=== PATIENT | female | born 1985 | race Caucasian/White ===

== ENCOUNTER 2019-01-25 20:19 | Emergency (ER) | payer MEDICAID ==
[~2019-01-25] VITALS: Ht 167.6 cm; Wt 49.0 kg
[2019-01-25 20:51] VITALS: BP 121/78
== END 2019-01-25 20:58 | disposition left against medical advice (07) ==
LOC: ER 20:19
DX: E86.0 Dehydration (principal); R21 Rash and other nonspecific skin eruption; Z53.21 Procedure and treatment not carried out due to patient leaving prior to being seen by health care provider

== ENCOUNTER 2019-02-22 15:05 | Emergency (ER) | payer MEDICAID ==
[~2019-02-22] VITALS: Ht 170.2 cm; Wt 52.3 kg
[2019-02-22] MEDS ORDERED: normal saline 1000ML IV soln IVB ONE ×2 (16:50→18:45)
[2019-02-22 17:25] LABS: BASOPHILS % (AUTO) 0.4 % (0-1); EOSINOPHILS % (AUTO) 0.1 % (0-6); HEMATOCRIT 42.9 % (35.0-45.0); HEMOGLOBIN 14.4 g/dl (12.0-16.0); LYMPHOCYTES # (AUTO) 1.7 X10'3 (1.1-4.8); MEAN CORPUSCULAR HGB CONC 33.6 g/dL (33.0-36.5); MEAN CORPUSCULAR VOLUME 86.4 FL (78-98); MEAN PLATELET VOLUME 8.5 FL (7.4-10.4); MONOCYTES # (AUTO) 0.8 X10'3 (0-0.9); MONOCYTES % (AUTO) 7.2 % (2-12); NEUTROPHILS # (AUTO) 8.5 X10'3 (1.8-7.7); NEUTROPHILS % (AUTO) 77.3 % (42-75); PLATELET COUNT 252 X10'3 (140-440); RED BLOOD COUNT 4.96 X10'6 (4.20-5.60); RED CELL DISTRIBUTION WIDTH 15.5 % (11.5-14.5); WHITE BLOOD COUNT 11.1 X10'3 (4.5-11.0)
[2019-02-22 17:29] LABS: URINE HCG NEGATIVE (NEG)
[2019-02-22 17:30] LABS: CLARITY,URINE SLIGHTLY CLOUDY (Clear); COLOR,URINE YELLOW (Yellow); GLUCOSE, URINE NEGATIVE (Neg); KETONES,URINE NEGATIVE (Neg); LEUKOCYTE ESTERASE ,URINE SMALL (Neg); NITRITES, URINE NEGATIVE (Neg); OCCULT BLOOD,URINE NEGATIVE (Neg); PH,URINE 5.5 (4.8-8.0); PROTEIN,URINE 100 mg/dl (Neg); UROBILINOGEN,URINE 0.2 E.U/dL (0.2-1.0)
[2019-02-22 17:37] LABS: ALANINE AMINOTRANSFERASE 27 U/L (12-78); ALBUMIN 4.8 G/DL (3.4-5.0); ALBUMIN/GLOBULIN RATIO 1.6 (1.1-1.5); ALKALINE PHOSPHATASE 33 IU/L (46-116); ANION GAP 13 (8-16); ASPARTATE AMINO TRANSFERASE 16 U/L (10-37); BILIRUBIN,TOTAL 1.3 MG/DL (0.1-1.0); BLOOD UREA NITROGEN 61 MG/DL (7-18); BUN/CREATININE RATIO 37.9 (6.6-38.0); CALCIUM 10.7 MG/DL (8.5-10.1); CHLORIDE 105 MMOL/L (99-107); CREATININE 1.61 MG/DL (0.40-0.90); GLUCOSE 119 MG/DL (70-104); SODIUM 145 MMOL/L (135-145); TOTAL PROTEIN 7.8 G/DL (6.4-8.2); eGFR 37 ML/MIN
[2019-02-22 17:47] LABS: UA COLLECTION TYPE CLN CATCH MIDSTREAM
[2019-02-22] MEDS ORDERED: potassium Cl 20 mEq SR tablet PO STA (17:49)
[2019-02-22 17:51] LABS: HYALINE CASTS >30 /LPF (NEGATIVE); MUCUS STRANDS MANY /LPF (Neg)
[2019-02-22 17:52] LABS: BACTERIA,URINE 2+ /HPF (Neg); SQUAMOUS EPITHELIAL CELL,UR MODERATE /LPF (FEW)
[2019-02-22 17:53] LABS: RBC,URINE NONE SEEN /HPF (0-2)
[2019-02-22 19:42] VITALS: BP 112/78
== END 2019-02-22 19:43 | disposition home or self-care (01) ==
LOC: ER 15:05
DX: E86.0 Dehydration (principal); Z59.0 Homelessness
CPT/HCPCS: 36415; 80053; 81001; 81025; 85025; 87077; 87088; 87186; 93005; 96360; 96361; 99284; J7030

== ENCOUNTER 2019-03-09 03:12 | Emergency (ER) | payer MEDICAID ==
[~2019-03-09] VITALS: Ht 165.1 cm; Wt 42.8 kg
[2019-03-09 03:24] VITALS: BP 99/72
== END 2019-03-09 05:12 | disposition home or self-care (01) ==
LOC: ER 03:13
DX: E86.0 Dehydration (principal); Z59.0 Homelessness
CPT/HCPCS: 99281

== ENCOUNTER 2019-08-22 22:29 | Inpatient (IN) | payer MEDICARE, OTHER ==
[~2019-08-22] VITALS: Ht 165.1 cm; Wt 67.9 kg
[~2019-08-22 22:29] MED LIST: naloxone 0.4 mg/ml inj ONE
[2019-08-22] MEDS ORDERED: midazolam 100mg in NS 100ml 100 ML IV PRN (22:43)
[2019-08-22] MEDS ORDERED: FENTANYL-0.9 % NACL/PF 100 ML IV PRN (22:43)
[2019-08-22] MEDS ORDERED: etomidate 2mg/ml inj. IV ONE (22:45)
[2019-08-22] MEDS ORDERED: naloxone 0.4 mg/ml inj IV ONE (22:45)
[2019-08-22] MEDS ORDERED: rocuronium 10mg/ml inj IV ONE (22:45)
--- NOTE | 2019-08-22 22:46 | NUR ---
POISON CONTROL CONTACTED. DAGOBERTO SUGGESTED SUPPORTIVE CARE, CMP, ASA, TYLENOL, BLOOD ETOH, AND EKG MONITORING. SEROQUEL PEAKS IN 1-2 HOURS, AND ZYPREXA IN ABOUT 6-8 HOURS. BOTH CAUSE PSYCH SPECIALIST DEPRESSION, HYPOTENSION, TACHYCARDIA, AND QT PROLONGATION.
[2019-08-22] MEDS ORDERED: normal saline 1000ML IV soln IVB ONE (22:50)
[2019-08-22] MEDS: FENTANYL-0.9 % NACL/PF 100 ML IV PRN (23:08)
[2019-08-22 23:11] LABS: BASOPHILS % (AUTO) 0.3 % (0-1); EOSINOPHILS # (AUTO) 0.1 X10'3 (0-0.9); EOSINOPHILS % (AUTO) 1.5 % (0-6); HEMATOCRIT 36.4 % (35.0-45.0); HEMOGLOBIN 12.5 g/dl (12.0-16.0); LYMPHOCYTES % (AUTO) 13.4 % (21-51); MEAN CORPUSCULAR HEMOGLOBIN 29.2 PG (27.0-31.0); MEAN CORPUSCULAR HGB CONC 34.4 g/dL (33.0-36.5); MEAN CORPUSCULAR VOLUME 84.8 FL (78-98); MEAN PLATELET VOLUME 6.9 FL (7.4-10.4); MONOCYTES # (AUTO) 0.4 X10'3 (0-0.9); MONOCYTES % (AUTO) 5.3 % (2-12); NEUTROPHILS # (AUTO) 6.1 X10'3 (1.8-7.7); NEUTROPHILS % (AUTO) 79.5 % (42-75); PLATELET COUNT 267 X10'3 (140-440); RED BLOOD COUNT 4.29 X10'6 (4.20-5.60); RED CELL DISTRIBUTION WIDTH 13.9 % (11.5-14.5); WHITE BLOOD COUNT 7.7 X10'3 (4.5-11.0)
[2019-08-22 23:11] LABS: ABG BASE EXCESS 0.1 mmol/L (-2.0-3.0); ABG HCO3 25.6 mmol/L (22.0-26.0); ABG OXYGEN SATURATION 97.8 % (95-98); ABG PCO2 (T) 43.7 mmHg (35.0-45.0); ABG PH (T) 7.383 (7.350-7.450); ABG PO2 (T) 113.9 mmHg (83-108); ALLEN'S TEST Positive; FCOHb 0.5 % (0.5-1.5); FMetHb 0.2 % (0.3-1.12); FO2Hb 97.1 % (94-100); MINUTE VOLUME 6 L/min; PATIENT TEMPERATURE 36.6; PEEP 5 cm H2O; RESPIRATORY RATE 14 b/min; RESPIRATORY RATE (OBSERVED) 14 b/min; TIDAL VOLUME 400 mL; TOTAL HEMOGLOBIN 12.6 G/dl (12.0-16.0)
[2019-08-22 23:17] LABS: ALANINE AMINOTRANSFERASE 42 U/L (12-78); ALBUMIN 3.9 G/DL (3.4-5.0); ALBUMIN/GLOBULIN RATIO 1.3 (1.1-1.5); ALKALINE PHOSPHATASE 73 IU/L (46-116); ANION GAP 14 (8-16); ASPARTATE AMINO TRANSFERASE 22 U/L (10-37); BILIRUBIN,TOTAL 0.3 MG/DL (0.1-1.0); BLOOD UREA NITROGEN 12 MG/DL (7-18); BUN/CREATININE RATIO 14.8 (6.6-38.0); CALCIUM 8.8 MG/DL (8.5-10.1); CHLORIDE 108 MMOL/L (99-107); CREATININE 0.81 MG/DL (0.40-0.90); GLUCOSE 131 MG/DL (70-104); POTASSIUM 3.2 MMOL/L (3.5-5.1); SODIUM 150 MMOL/L (135-145); TOTAL CARBON DIOXIDE 27.9 MMOL/L (24-32); eGFR 81 ML/MIN
[2019-08-22 23:28] LABS: ACETAMINOPHEN < 2.0 UG/ML (10-30); CREATINE KINASE 221 U/L (26-192); ETHANOL < 0.010 GM/DL (0.0-0.010)
[2019-08-22 23:35] LABS: URINE AMPHETAMINE SCREEN NEGATIVE (Neg); URINE BARBITUATE SCREEN NEGATIVE (Neg); URINE BENZODIAZEPINES SCREEN NEGATIVE (Neg); URINE CANNABINOID SCREEN POSITIVE (Neg); URINE COCAINE SCREEN NEGATIVE (Neg); URINE METHADONE SCREEN NEGATIVE (Neg); URINE OPIATE SCREEN NEGATIVE (Neg); URINE PHENCYCLIDINE SCREEN NEGATIVE (Neg)
--- NOTE | 2019-08-22 23:35 | NUR ---
EMS was contacted for a woman unresponsive in a locked vehicle. Once on seen they had to break a window and pt was maintaining her own airway with RR of 8 and responsive only to painful stimuli - upon arrival to ER decision was made to intubate pt. She was given Narcan with no change. Etomidate and Rocuronium was used for RSI and a size 8.0 ET tube was placed, 22 at the teeth. Placement was confirmed by x-ray (NG tube was placed and confirmed at this time as well) -
[2019-08-22] MEDS ORDERED: METF500T PO (23:46)
[2019-08-22] MEDS ORDERED: OLAN20TA3 PO (23:46)
[2019-08-22] MEDS ORDERED: QUET25TA PO (23:46)
[2019-08-22] MEDS ORDERED: BENZ0.5T4 PO (23:46)
[2019-08-22] MEDS ORDERED: GABA-532 PO (23:46)
[2019-08-22] MEDS: potassium Cl 10 mEq/100mL bag IV SCH (23:57)
[2019-08-23] VITALS (24 sets, daily range): BP systolic 98–129; BP diastolic 61–93
--- NOTE | 2019-08-23 | NUR ---
warming measures initiated - warm blankets and howard hugger placed
--- NOTE | 2019-08-23 00:05 | NUR ---
SEPTEMBER AT BEDSIDE FOR ADMISSION
[2019-08-23] MEDS ORDERED: potassium CL 10mEq/100ml bag 100 ML IV PRN (00:30)
[2019-08-23] MEDS ORDERED: FENTANYL-0.9 % NACL/PF 100 ML IV PRN (00:30)
[2019-08-23] MEDS ORDERED: ondansetron/PF 4mg/2ml inj IV PRN (00:30)
[2019-08-23] MEDS ORDERED: ipratropium/albuterol 3ml nebule NEB PRN (00:30)
[2019-08-23] MEDS ORDERED: acetaminophen 325mg tablet PO PRN ×2 (00:30)
[2019-08-23] MEDS ORDERED: midazolam 100mg in NS 100ml 100 ML IV PRN (00:30)
[2019-08-23] MEDS ORDERED: magnesium hydroxide 30ml (MOM) UD suspension PO PRN (00:30)
[2019-08-23] MEDS ORDERED: MESSAGE TO PHARMACY PO ONE (00:50)
[2019-08-23] MEDS ORDERED: glucagon, human recombinant 1mg kit SUBCUT PRN (00:50)
[2019-08-23] MEDS ORDERED: dextrose ORAL solution 15 GM/59 ML bottle PO PRN ×2 (00:50)
[2019-08-23] MEDS ORDERED: insulin regular, human vial - multi-dose SQ SCH (00:50)
[2019-08-23] MEDS ORDERED: insulin Lispro (HumaLOG) vial - multi-dose SQ SCH (00:50)
[2019-08-23] MEDS ORDERED: dextrose 50%-water 50ml dispensing syringe IV PRN ×2 (00:50)
[2019-08-23] MEDS: potassium Cl 10 mEq/100mL bag IV SCH (00:56)
[2019-08-23 01:13] LABS: CLARITY,URINE CLOUDY (Clear); COLOR,URINE YELLOW (Yellow); GLUCOSE, URINE NEGATIVE (Neg); KETONES,URINE NEGATIVE (Neg); LEUKOCYTE ESTERASE ,URINE NEGATIVE (Neg); NITRITES, URINE NEGATIVE (Neg); OCCULT BLOOD,URINE NEGATIVE (Neg); PROTEIN,URINE NEGATIVE (Neg); UROBILINOGEN,URINE 0.2 E.U/dL (0.2-1.0)
[2019-08-23 01:14] LABS: UA COLLECTION TYPE FOLEY CATH
[2019-08-23 01:19] LABS: AMORPHOUS URATES 2+; BACTERIA,URINE NONE SEEN /HPF (Neg); MUCUS STRANDS NONE SEEN /LPF (Neg); RBC,URINE NONE SEEN /HPF (0-2); SQUAMOUS EPITHELIAL CELL,UR NONE SEEN /LPF (FEW); WBC,URINE NONE SEEN /HPF (0-4)
[2019-08-23] MEDS: sodium chloride 0.45% 1,000 ML IV SCH ×2 (01:24→03:43)
--- NOTE | 2019-08-23 03:10 | NUR ---
POISON CONTROLLED RECONTACTED. PTS VITALS AND CONDITION WAS GIVEN AND THEN THEY WERE TRANSFERRED TO ICU FOR ADDITIONAL INFO.
--- NOTE | 2019-08-23 03:25 | NUR ---
POISON CONTROL CALLED , UPDATES GIVEN , ORDER TO HAVE EKG AND CALL FOR ANY PROBLEM
[2019-08-23 03:38] LABS: HEMOGLOBIN A1C 5.3 % (4.5-6.2)
[2019-08-23] MEDS: FENTANYL-0.9 % NACL/PF 100 ML IV PRN (03:43)
[2019-08-23] MEDS ORDERED: rocuronium 10mg/ml inj IV ONE (04:00)
[2019-08-23] MEDS ORDERED: etomidate 2mg/ml inj. ONE (04:00)
[2019-08-23 04:25] LABS: ABG HCO3 22.1 mmol/L (22.0-26.0); ABG OXYGEN SATURATION 98.4 % (95-98); ABG PCO2 (T) 34.4 mmHg (35.0-45.0); ABG PH (T) 7.423 (7.350-7.450); ABG PO2 (T) 142.2 mmHg (83-108); ALLEN'S TEST Positive; FCOHb 0.3 % (0.5-1.5); FMetHb 0.2 % (0.3-1.12); FO2Hb 97.9 % (94-100); MINUTE VOLUME 6 L/min; PATIENT TEMPERATURE 36.2; PEEP 5 cm H2O; RESPIRATORY RATE 14 b/min; RESPIRATORY RATE (OBSERVED) 14 b/min; TIDAL VOLUME 400 mL; TOTAL HEMOGLOBIN 12.1 G/dl (12.0-16.0)
[2019-08-23 05:37] LABS: PARTIAL THROMBOPLASTIN TIME 21 SECONDS (22-32)
[2019-08-23 06:04] LABS: ALBUMIN 3.3 G/DL (3.4-5.0); ANION GAP 12 (8-16); BLOOD UREA NITROGEN 10 MG/DL (7-18); BUN/CREATININE RATIO 14.5 (6.6-38.0); CALCIUM 8.3 MG/DL (8.5-10.1); CHLORIDE 112 MMOL/L (99-107); CREATININE 0.69 MG/DL (0.40-0.90); GLUCOSE 86 MG/DL (70-104); POTASSIUM 3.9 MMOL/L (3.5-5.1); SODIUM 147 MMOL/L (135-145); TOTAL CARBON DIOXIDE 22.7 MMOL/L (24-32); eGFR > 90 ML/MIN
--- NOTE | 2019-08-23 06:43 | NUR ---
Problems reprioritized. Patient report given, questions answered & plan of care reviewed with Ajay BELLO.
[2019-08-23] MEDS: acetaminophen 650mg rectal suppository RC PRN ×2 (08:39→19:03)
[2019-08-23] MEDS: pantoprazole 40 MG vial IV SCH (08:49)
[2019-08-23] MEDS: potassium CL 20mEq in D5-1/2NS 1,000 ML IV SCH ×2 (08:51→19:03)
[2019-08-23] MEDS: enoxaparin 40mg/0.4ml syringe SUBCUT SCH (08:51)
--- NOTE | 2019-08-23 13:48 | NUR ---
Patient is intubated and sedated, suspected OD. NPO. If prolonged intubation TF recs below. Recommend: 1. if prolonged intubation may benefit from nutrition support to meet needs, IF TF rec: vital AF at 65 ml/hr 2. When extubated advance diet as medically indicated to regular Addendum: 08/23/19 at [address] Amended: Links added.
[2019-08-23 14:24] LABS: BASOPHILS % (AUTO) 0.1 % (0-1); EOSINOPHILS # (AUTO) 0.1 X10'3 (0-0.9); EOSINOPHILS % (AUTO) 1.1 % (0-6); HEMOGLOBIN 12.5 g/dl (12.0-16.0); LYMPHOCYTES # (AUTO) 0.9 X10'3 (1.1-4.8); LYMPHOCYTES % (AUTO) 7.1 % (21-51); MEAN CORPUSCULAR HEMOGLOBIN 29.3 PG (27.0-31.0); MEAN CORPUSCULAR HGB CONC 33.9 g/dL (33.0-36.5); MEAN CORPUSCULAR VOLUME 86.3 FL (78-98); MEAN PLATELET VOLUME 7.2 FL (7.4-10.4); MONOCYTES # (AUTO) 0.6 X10'3 (0-0.9); MONOCYTES % (AUTO) 4.5 % (2-12); NEUTROPHILS # (AUTO) 10.9 X10'3 (1.8-7.7); NEUTROPHILS % (AUTO) 87.2 % (42-75); PLATELET COUNT 222 X10'3 (140-440); RED BLOOD COUNT 4.28 X10'6 (4.20-5.60); RED CELL DISTRIBUTION WIDTH 13.5 % (11.5-14.5); WHITE BLOOD COUNT 12.5 X10'3 (4.5-11.0)
[2019-08-23 14:40] LABS: ALANINE AMINOTRANSFERASE 33 U/L (12-78); ALBUMIN 3.4 G/DL (3.4-5.0); ALBUMIN/GLOBULIN RATIO 1.1 (1.1-1.5); ALKALINE PHOSPHATASE 75 IU/L (46-116); ANION GAP 8 (8-16); ASPARTATE AMINO TRANSFERASE 16 U/L (10-37); BILIRUBIN,TOTAL 0.5 MG/DL (0.1-1.0); BLOOD UREA NITROGEN 5 MG/DL (7-18); CALCIUM 8.5 MG/DL (8.5-10.1); CHLORIDE 110 MMOL/L (99-107); CREATININE 0.84 MG/DL (0.40-0.90); GLUCOSE 97 MG/DL (70-104); POTASSIUM 3.9 MMOL/L (3.5-5.1); SODIUM 145 MMOL/L (135-145); TOTAL CARBON DIOXIDE 26.6 MMOL/L (24-32); TOTAL PROTEIN 6.4 G/DL (6.4-8.2); eGFR 78 ML/MIN
[2019-08-23 14:42] LABS: PHOSPHORUS 3.9 MG/DL (2.3-4.5)
--- NOTE | 2019-08-23 18:23 | NUR ---
Problems reprioritized. Patient report given, questions answered & plan of care reviewed with EUGENIA Mendieta. Addendum: 08/23/19 at 1823 by Yumiko Bianchi RN Amended: Links added.
--- NOTE | 2019-08-23 18:35 | NUR ---
received report from Yumiko BELLO no questions or concerns after assuming care
--- NOTE | 2019-08-23 20:33 | NUR ---
patient in bed eyes closed rr even un labored no observable s/s of acute stress at this time will continue to monitor
[2019-08-23] MEDS: insulin glargine (Lantus) pen - multi-dose SQ SCH (21:00)
[2019-08-24] VITALS (20 sets, daily range): BP systolic 103–155; BP diastolic 57–100
--- NOTE | 2019-08-24 00:30 | NUR ---
patient in bed covers on eyes closed rr even un labored no observable s/s of acute stress at this time will continue to monitor
[2019-08-24] MEDS: mineral oil/petrolatum ophthal oint EACHEYE SCH ×3 (02:15→14:00)
--- NOTE | 2019-08-24 02:24 | NUR ---
patient in bed covers on eyes closed rr even un labored no observable s/s of acute stress at this time will continue to monitor
[2019-08-24 03:51] LABS: ABG BASE EXCESS -0.2 mmol/L (-2.0-3.0); ABG HCO3 24.7 mmol/L (22.0-26.0); ABG OXYGEN SATURATION 98.2 % (95-98); ABG PCO2 (T) 42.5 mmHg (35.0-45.0); ABG PH (T) 7.385 (7.350-7.450); ABG PO2 (T) 126.2 mmHg (83-108); ALLEN'S TEST Positive; FCOHb 0.3 % (0.5-1.5); FMetHb 0.3 % (0.3-1.12); FO2Hb 97.6 % (94-100); MINUTE VOLUME 5 L/min; PATIENT TEMPERATURE 37.7; PEEP 5 cm H2O; RESPIRATORY RATE (OBSERVED) 7 b/min; TOTAL HEMOGLOBIN 13.5 G/dl (12.0-16.0)
[2019-08-24] MEDS: potassium CL 20mEq in D5-1/2NS 1,000 ML IV SCH ×2 (05:01→14:35)
--- NOTE | 2019-08-24 06:26 | NUR ---
SBAR STONE ROJAS RN NO QUESTIONS OR CONCERNS AFTER ASSUMING CARE
[2019-08-24 06:29] LABS: BASOPHILS % (AUTO) 0.2 % (0-1); EOSINOPHILS # (AUTO) 0.2 X10'3 (0-0.9); EOSINOPHILS % (AUTO) 1.8 % (0-6); HEMATOCRIT 36.8 % (35.0-45.0); HEMOGLOBIN 12.9 g/dl (12.0-16.0); LYMPHOCYTES # (AUTO) 1.1 X10'3 (1.1-4.8); LYMPHOCYTES % (AUTO) 11.5 % (21-51); MEAN CORPUSCULAR HEMOGLOBIN 29.7 PG (27.0-31.0); MEAN CORPUSCULAR HGB CONC 35.1 g/dL (33.0-36.5); MEAN CORPUSCULAR VOLUME 84.5 FL (78-98); MEAN PLATELET VOLUME 7.4 FL (7.4-10.4); MONOCYTES # (AUTO) 0.5 X10'3 (0-0.9); MONOCYTES % (AUTO) 4.8 % (2-12); NEUTROPHILS % (AUTO) 81.7 % (42-75); PLATELET COUNT 220 X10'3 (140-440); RED BLOOD COUNT 4.36 X10'6 (4.20-5.60); RED CELL DISTRIBUTION WIDTH 13.7 % (11.5-14.5); WHITE BLOOD COUNT 9.8 X10'3 (4.5-11.0)
[2019-08-24 06:33] LABS: ALANINE AMINOTRANSFERASE 30 U/L (12-78); ALBUMIN 3.3 G/DL (3.4-5.0); ALKALINE PHOSPHATASE 73 IU/L (46-116); ANION GAP 10 (8-16); ASPARTATE AMINO TRANSFERASE 16 U/L (10-37); BILIRUBIN,TOTAL 0.6 MG/DL (0.1-1.0); BLOOD UREA NITROGEN 5 MG/DL (7-18); BUN/CREATININE RATIO 7.7 (6.6-38.0); CALCIUM 8.8 MG/DL (8.5-10.1); CHLORIDE 109 MMOL/L (99-107); CREATININE 0.65 MG/DL (0.40-0.90); GLUCOSE 94 MG/DL (70-104); MAGNESIUM 1.8 MG/DL (1.5-2.4); PHOSPHORUS 3.9 MG/DL (2.3-4.5); POTASSIUM 3.8 MMOL/L (3.5-5.1); SODIUM 144 MMOL/L (135-145); TOTAL PROTEIN 6.5 G/DL (6.4-8.2); eGFR > 90 ML/MIN
[2019-08-24] MEDS: FENTANYL-0.9 % NACL/PF 100 ML IV PRN (06:50)
[2019-08-24] MEDS: enoxaparin 40mg/0.4ml syringe SUBCUT SCH (07:58)
[2019-08-24] MEDS: pantoprazole 40 MG vial IV SCH (07:58)
--- NOTE | 2019-08-24 10:30 | NUR ---
Per armaan Bustamante not to replace potassium Addendum: 08/24/19 at 1719 by Adelina Farias RN *tye albarran
[2019-08-24 11:22] LABS: URINE HCG NEGATIVE (NEG)
--- NOTE | 2019-08-24 11:31 | NUR ---
F/u: Pt extubated this AM AOx1 pending psych eval and will need to be on 1798 prior to 5150 per critical care team. Per RN; prior hx SI per family. Will monitor for PO diet advancement and tolerance. Recommend: 1. advance diet as medically indicated to regular 2. Once OK for PO; monitor for PO diet tolerance 3. wt per rx Addendum: 08/24/19 at [address] Amended: Links added.
[2019-08-24] MEDS: OLANZAPINE 5 MG TABLET PO SCH ×2 (13:28→20:43)
--- NOTE | 2019-08-24 16:45 | NUR ---
Per poison control, pt is cleared from a toxicology perspective.
--- NOTE | 2019-08-24 20:00 | NUR ---
Pt pulled out right piv and handed to rn.
--- NOTE | 2019-08-24 20:15 | NUR ---
Moisés caro'd by charge account identification clerk due to pt pulling at it. Sitter at bedside.
--- NOTE | 2019-08-24 20:20 | NUR ---
Pt refused to have blood pressure taken. Pt currently has head covered under the blankets.
--- NOTE | 2019-08-24 20:23 | NUR ---
Pt refused 1999 accucheck.
--- NOTE | 2019-08-24 20:44 | NUR ---
PO medication given with security at bedside.
[2019-08-24] MEDS ORDERED: haloperidol lactate 5mg/ml inj IM ONE (21:00)
[2019-08-24] MEDS: insulin glargine (Lantus) pen - multi-dose SQ SCH (21:00)
--- NOTE | 2019-08-24 21:25 | NUR ---
Medication injectable given with security at bedside.
--- NOTE | 2019-08-24 21:38 | NUR ---
Pt refused to have vital signs taken at this time.
--- NOTE | 2019-08-24 23:05 | NUR ---
Pt refused to have vital signs taken.
[2019-08-25] MEDS: potassium CL 20mEq in D5-1/2NS 1,000 ML IV SCH (00:35)
[2019-08-25 04:45] VITALS: BP 135/84
[2019-08-25 05:33] LABS: BASOPHILS % (AUTO) 0.3 % (0-1); EOSINOPHILS # (AUTO) 0.1 X10'3 (0-0.9); EOSINOPHILS % (AUTO) 1.6 % (0-6); HEMATOCRIT 35.7 % (35.0-45.0); HEMOGLOBIN 12.6 g/dl (12.0-16.0); LYMPHOCYTES % (AUTO) 12.6 % (21-51); MEAN CORPUSCULAR HEMOGLOBIN 29.6 PG (27.0-31.0); MEAN CORPUSCULAR HGB CONC 35.2 g/dL (33.0-36.5); MEAN CORPUSCULAR VOLUME 84.1 FL (78-98); MEAN PLATELET VOLUME 7.2 FL (7.4-10.4); MONOCYTES # (AUTO) 0.4 X10'3 (0-0.9); MONOCYTES % (AUTO) 5.6 % (2-12); NEUTROPHILS # (AUTO) 6.1 X10'3 (1.8-7.7); NEUTROPHILS % (AUTO) 79.9 % (42-75); PLATELET COUNT 253 X10'3 (140-440); RED BLOOD COUNT 4.24 X10'6 (4.20-5.60); RED CELL DISTRIBUTION WIDTH 13.5 % (11.5-14.5); WHITE BLOOD COUNT 7.7 X10'3 (4.5-11.0)
[2019-08-25 05:46] LABS: ALANINE AMINOTRANSFERASE 28 U/L (12-78); ALBUMIN 3.5 G/DL (3.4-5.0); ALKALINE PHOSPHATASE 72 IU/L (46-116); ANION GAP 13 (8-16); ASPARTATE AMINO TRANSFERASE 23 U/L (10-37); BILIRUBIN,TOTAL 0.6 MG/DL (0.1-1.0); BLOOD UREA NITROGEN 7 MG/DL (7-18); BUN/CREATININE RATIO 10.4 (6.6-38.0); CALCIUM 9.2 MG/DL (8.5-10.1); CHLORIDE 107 MMOL/L (99-107); CREATININE 0.67 MG/DL (0.40-0.90); GLUCOSE 90 MG/DL (70-104); PHOSPHORUS 4.8 MG/DL (2.3-4.5); POTASSIUM 4.1 MMOL/L (3.5-5.1); SODIUM 144 MMOL/L (135-145); TOTAL CARBON DIOXIDE 24.4 MMOL/L (24-32); TOTAL PROTEIN 6.9 G/DL (6.4-8.2); eGFR > 90 ML/MIN
--- NOTE | 2019-08-25 06:00 | NUR ---
Patient in room CICU 2007. I have received report from LEO RN and had the opportunity to ask questions and assume patient care.
[2019-08-25 07:00] VITALS: BP 136/81
[2019-08-25 08:00] VITALS: BP 129/78
[2019-08-25] MEDS: enoxaparin 40mg/0.4ml syringe SUBCUT SCH (08:00)
--- NOTE | 2019-08-25 08:05 | NUR ---
Dr. Melton came to visit at bedside, pt denied suicide attempt. Dr. Melton advised that pt will be transferred to the behavioral unit to receive appropriate care.
[2019-08-25] MEDS: pantoprazole 40 MG vial IV SCH (08:12)
[2019-08-25] MEDS: OLANZAPINE 5 MG TABLET PO SCH (08:13)
[2019-08-25 09:00] VITALS: BP 130/74
[2019-08-25 10:00] VITALS: BP 128/77
--- NOTE | 2019-08-25 11:20 | NUR ---
Pt D/C to ED bed 15 at 1120 via wheelchair, all personal belongings were taken with patient. Gave report to ED nurse. Personal meds are with pharmacy, do not give pt her meds due to previous suicide attempts
== END 2019-08-25 11:42 | DRG 917 ==
LOC: ER 22:29 → ED HOLD 08-23 00:30 → CICU 2S 08-23 02:00
PROVIDERS: ADMIT Internal Medicine Critical Care Medicine; ATTEND Internal Medicine Critical Care Medicine
PROC: 5A1945Z Respiratory Ventilation, 24-96 Consecutive Hours (ICD-10-PCS; principal; 2019-08-23)
PROC: 0BH17EZ Insertion of Endotracheal Airway into Trachea, Via Natural or Artificial Opening (ICD-10-PCS; 2019-08-23)
DX: T50.901A Poisoning by unspecified drugs, medicaments and biological substances, accidental (unintentional), initial encounter (principal); J96.00 Acute respiratory failure, unspecified whether with hypoxia or hypercapnia; G92 Toxic encephalopathy; E87.1 Hypo-osmolality and hyponatremia; E87.0 Hyperosmolality and hypernatremia; E87.5 Hyperkalemia; F32.9 Major depressive disorder, single episode, unspecified; E11.9 Type 2 diabetes mellitus without complications; Y92.89 Other specified places as the place of occurrence of the external cause; Z59.0 Homelessness
CPT/HCPCS: 31500; 36415; 36600; 70450; 71045; 80048; 80053; 80305; 80320; 80329; 81001; 81025; 82550; 82803; 82948; 83036; 83605; 83735; 84100; 84145; 84484; 85018; 85025; 85610; 85730; 87040; 87070; 87081; 93005; 94002; 94003; 94760; 99291; C9113; G0378; J1630; J1650; J1815; J2250; J2310; J3010; J3480

== ENCOUNTER 2019-08-25 11:43 | Emergency (ER) | payer MEDICARE, OTHER ==
[~2019-08-25] VITALS: Ht 165.1 cm; Wt 67.0 kg
[~2019-08-25 11:43] MED LIST changes: +BENZ0.5T4 PO; +GABA-532 PO; +METF500T PO; +OLAN20TA3 PO; +QUET25TA PO; -naloxone 0.4 mg/ml inj ONE
[2019-08-25] MEDS ORDERED: haloperidol lactate 5mg/ml inj IM ONE (12:25)
[2019-08-25] MEDS ORDERED: diphenhydrAMINE 50 mg/ml inj IM ONE (12:25)
[2019-08-25] MEDS ORDERED: LORazepam 1 MG tablet PO ONE (12:25)
--- NOTE | 2019-08-25 12:50 | NUR ---
PT GIVEN PO ATIVAN AND 20G IV REMOVED FROM LEFT AC CATH INTACT
--- NOTE | 2019-08-25 13:27 | NUR ---
Pt transferred from main ER bed 15 to ER overflow bed 26 at 1320. Pt is currently eating lunch and requesting something for anxiety.
[2019-08-25] MEDS ORDERED: olanzapine 10mg tablet PO ONE (14:35)
--- NOTE | 2019-08-25 15:08 | NUR ---
Pt denied depression and SI, stated that she is happy that she has been sleeping better here as before she had not been able to sleep much. Pt admits to AH, denies CAH, states that the voices are "impulsive". Pt also having VH, states they are from the "spiritual realm, darkness and light." Speech is pressured, pt slightly tachycardic at 107. Pt requested something for anxiety stating that Seroquel or Zyprexa would work. Obtained order from LINDA Lenz for Zyprexa 10 mg PO X 1, adminstered at 1436. Pt has an intermittent moist, nonproductive cough, lung sounds are clear to auscultation.
--- NOTE | 2019-08-25 15:20 | NUR ---
Pt is being evaluated by Magdiel from [facility].
--- NOTE | 2019-08-25 16:26 | NUR ---
[facility] placed pt on a 5150 for DTS.
--- NOTE | 2019-08-25 18:00 | NUR ---
Pt's bed was moved from 26 to 21, pt appears to be sleeping.
[2019-08-25] MEDS ORDERED: metFORMIN 500mg tablet PO SCH (20:00)
[2019-08-25] MEDS: gabapentin 300mg capsule PO SCH (20:14)
[2019-08-25] MEDS: benztropine 1mg tablet PO SCH (20:14)
[2019-08-25] MEDS: QUEtiapine 25mg tablet PO SCH (20:14)
--- NOTE | 2019-08-25 20:27 | NUR ---
Pt given oral hygiene products. Up to bathroom to perform evening toilet. Gait steady.
[2019-08-25] MEDS ORDERED: ibuprofen tablet 400 MG TABLET PO PRN (20:30)
[2019-08-25] MEDS ORDERED: diphenhydrAMINE 25mg capsule PO PRN (20:30)
[2019-08-25] MEDS: benzocaine/menthol oral lozeng 1 EACH BOX MM PRN ×2 (20:46→22:31)
[2019-08-25] MEDS ORDERED: olanzapine 10mg tablet PO SCH (21:00)
--- NOTE | 2019-08-25 21:00 | NUR ---
Pt has dry barking cough. Pt displayse pressured speech and behavior, but appropriate and cooperative. Pt cooperative with medication administration. New orders for PRN Ibuprofen for mild to moderate pain, Benadryl for sleep PRN, and chloraseptic lozenges for sore throat and dry cough.
--- NOTE | 2019-08-26 01:02 | NUR ---
PT SLEEPING , LYING ON HER RIGHT SIDE WITH BLANKETS COVERING TO HER SHOULDERS. RR 16 AND UNLABORED. SITTER AND RN WITHIN VIEW OF PT AAT.
--- NOTE | 2019-08-26 03:21 | NUR ---
Pt woke, asked for and recieved Chloroseptic lozenge for cough. Pt returned to bed and appears to be resting peacefully.
[2019-08-26] MEDS: benzocaine/menthol oral lozeng 1 EACH BOX MM PRN ×3 (05:03→21:45)
--- NOTE | 2019-08-26 05:03 | NUR ---
Pt continues to have dry barking cough, she states chloroseptic lozenges help.
--- NOTE | 2019-08-26 06:37 | NUR ---
Assumed care of pt
--- NOTE | 2019-08-26 07:01 | NUR ---
PT IS AWAKE EATING CRACKERS AND READING HER BIBLE, NO S/S OF DISTRESS.
[2019-08-26] MEDS: benztropine 1mg tablet PO SCH ×2 (08:14→20:13)
[2019-08-26] MEDS: QUEtiapine 25mg tablet PO SCH ×2 (08:14→16:12)
[2019-08-26] MEDS: gabapentin 300mg capsule PO SCH ×3 (08:14→20:11)
--- NOTE | 2019-08-26 08:31 | NUR ---
Pt coughing and given lozengers
--- NOTE | 2019-08-26 09:53 | NUR ---
PT AT ASKING IF SHE HAS PLACEMENT, PT EDUCATED, AMBULATED TO RESTROOM.
--- NOTE | 2019-08-26 10:19 | NUR ---
PT REQUESTING A SCALE, TOLD PT WE DO NOT HAVE A SCALE. ASKED PT WHY SHE WANTS TO WEIGH HERSELF, SHE STATED "SOMETIMES I GET MAD AT MYSELF FOR EATING TOO MUCH FOOD AND I WANTED TO SEE WHERE I AM AT".
--- NOTE | 2019-08-26 10:34 | NUR ---
Pt states she has no suicidal ideation at ths time but understands that she is being sent to a psychiatric hospital. Pt reading and sleeping off and on.
--- NOTE | 2019-08-26 11:25 | NUR ---
Pt continues to sleep on her right side in no apparent distress. Respirations are even and unlabored. She has an occasional raspy cough
--- NOTE | 2019-08-26 12:12 | NUR ---
Pt up to the bathroom. Pt given lozenger for cough.
--- NOTE | 2019-08-26 14:06 | NUR ---
Pt up to the bathroom and to get another magazine
--- NOTE | 2019-08-26 16:17 | NUR ---
pt up to bathroom. requesting either her seroquel or neurontin for feelings of anxiety. states she takes them as needed at home. Dr Michael notified and stated she could take her Seroquel now. med given.
--- NOTE | 2019-08-26 18:05 | NUR ---
Pt hungry asking for crackers. Crackers given
--- NOTE | 2019-08-26 18:39 | NUR ---
Patient is sleeping, in view from nursing station.
[2019-08-26] MEDS: olanzapine 10mg tablet PO SCH (20:11)
[2019-08-26] MEDS ORDERED: LORazepam 1 MG tablet PO ONE (21:30)
[2019-08-27] MEDS ORDERED: QUEtiapine 25mg tablet PO ONE (04:30)
[2019-08-27] MEDS: benzocaine/menthol oral lozeng 1 EACH BOX MM PRN ×2 (04:40→09:19)
--- NOTE | 2019-08-27 08:15 | NUR ---
Up to bathroom, asking to try on some of her clothes. Then back to bed.
[2019-08-27] MEDS: benztropine 1mg tablet PO SCH ×2 (09:18→20:54)
[2019-08-27] MEDS: gabapentin 300mg capsule PO SCH ×3 (09:18→20:53)
[2019-08-27] MEDS: QUEtiapine 25mg tablet PO SCH ×2 (09:18→20:53)
--- NOTE | 2019-08-27 09:35 | NUR ---
Sitting up in bed, ate breakfast. Looking at magazines.
--- NOTE | 2019-08-27 12:30 | NUR ---
Asking over and over if she can try on some clothes she was given. Assured she can do that when she is discharged and is agreeable
--- NOTE | 2019-08-27 14:40 | NUR ---
Called [facility] for psych eval; they will be admitting her to [facility] today.
[2019-08-27 17:18] VITALS: BP 108/80
--- NOTE | 2019-08-27 17:37 | NUR ---
Sitting in the bed coloring
[2019-08-27] MEDS: olanzapine 10mg tablet PO SCH (20:53)
[2019-08-28] MEDS ORDERED: DEXT1LOZ20 PO (07:15)
[2019-08-28] MEDS ORDERED: DIPH25CA83 PO (07:15)
[2019-08-28] MEDS ORDERED: IBUP-1984 PO (07:15)
== END 2019-08-27 22:08 ==
LOC: ER 11:43
DX: R45.851 Suicidal ideations (principal); R44.0 Auditory hallucinations; R44.1 Visual hallucinations; Z60.2 Problems related to living alone; Z59.0 Homelessness
CPT/HCPCS: 99285; Q0163

== ENCOUNTER 2019-08-27 20:22 | Inpatient (IN) | payer MEDICARE, OTHER ==
[~2019-08-27] VITALS: Ht 170.2 cm; Wt 64.4 kg
[2019-08-27] MEDS ORDERED: acetaminophen 325mg tablet PO PRN ×2 (21:40)
[2019-08-27] MEDS ORDERED: magnesium hydroxide 30ml (MOM) UD suspension PO PRN (21:40)
[2019-08-27] MEDS ORDERED: loperamide 2mg capsule PO PRN (21:40)
[2019-08-27] MEDS ORDERED: mag hydrox/Alum hydrox/simeth 30ml oral suspension PO PRN (21:40)
[2019-08-27] MEDS ORDERED: hydrOXYzine 25 MG tablet PO PRN (21:40)
[2019-08-27] MEDS: LORazepam 1 MG tablet PO PRN (23:37)
--- NOTE | 2019-08-28 00:01 | NUR ---
NEW ADMIT NOTE: The patient was admitted to [facility] from ER overflow. The patient ambulated with a steady gate accompanied by DAYTON Segura and . She was checked by josé luis for contraband; nothing was found. She was then shown her room 331 A, and the unit. The patient was led to the shower for a 2 RN skin check. Her skin is intact. She was offered and accepted a snack while the admission was completed. She will be under the care of Dr. Aranda. The patient states that she drove from [place] to [place] in one night, and after she arrived in [place] she was trying to sleep in her car, however the patient stated that "anxiety and mental issues keeps me up for days." The patient stated that she took a bunch of pills. The patient denies that this was a suicide attempt, however, the patient stated that "I know it is harmful if I take that many pills." Patient also reported having audio hallucinations which she describes as "impulsive thoughts" and they say "let the bodies drop on the ground." She denies that it was a command hallucination but describes it like a song. The patient also reports having visual hallucinations. The patient also reports that all her belongings are in her can and it was impounded somewhere. [facility] the [facility] after D/C and resume connection with [facility].
[2019-08-28] MEDS: LORazepam 1 MG tablet PO PRN ×2 (05:54→20:32)
[2019-08-28] MEDS ORDERED: DIPH25CA83 PO (07:15)
[2019-08-28] MEDS ORDERED: IBUP-1984 PO (07:15)
[2019-08-28] MEDS ORDERED: DEXT1LOZ20 PO (07:15)
[2019-08-28] MEDS ORDERED: DEXTROMETH PO PRN (07:25)
[2019-08-28] MEDS ORDERED: BENZOCAINE PO PRN (07:25)
[2019-08-28] MEDS ORDERED: ibuprofen tablet 400 MG TABLET PO PRN (07:25)
[2019-08-28] MEDS ORDERED: MENTHOL PO PRN (07:25)
[2019-08-28] MEDS ORDERED: diphenhydrAMINE 25mg capsule PO PRN (07:25)
[2019-08-28] MEDS ORDERED: QUEtiapine 25mg tablet PO SCH (08:00)
[2019-08-28] MEDS: benztropine 1mg tablet PO SCH ×2 (08:08→20:32)
[2019-08-28] MEDS: gabapentin 300mg capsule PO SCH ×3 (08:08→20:32)
[2019-08-28 08:38] VITALS: BP 115/74
[2019-08-28 09:23] LABS: CHOL/HDL RATIO 4.7 (0.00-4.99); CHOLESTEROL 170 MG/DL (0-200); HDL CHOLESTEROL 36 MG/DL (35-60); LDL CHOLESTEROL 113 MG/DL (50-100); TRIGLYCERIDES 90 MG/DL (20-135)
--- NOTE | 2019-08-28 15:00 | NUR ---
PSYCHOSOCIAL Met with Corinna to complete Psychosocial Assessment. Corinna is a 34 y/o female who was found unresponsive inside her car at a confucianist. EMS found empty bottles of zyprexa and seroquel in the car. She was intubated in the ED and admitted to ICU. Ct reported she is from [place], [place], and she traveled to [place] about a week ago. ED records indicate Corinna had several ED visits in February 2019 and during one of those visits she was hospitalized at [facility]. Ct reported she has been hospitalized several times. She reported auditory and visual hallucinations. She reported the voices are command in nature at times. She denied that she was suicidal when she overdosed on her medications. She reported she felt like she needed to take more than usual because they did not seem to be working. Corinna was guarded and paranoid during the assessment.She was not the best historian. She would not provide her parents names or phone numbers. JEANNIE Andrade Addendum: 08/28/19 at 1501 by Autumn Ca Amended: Links added.
--- NOTE | 2019-08-28 16:51 | NUR ---
Nursing Progress Note: Clare Legal hold: 5150 DTS Report received from EUGENIA Hollis with use of SBAR The patient states that she drove from [place] to [place] in one night, and after she arrived in [place] she was trying to sleep in her car, however the patient stated that "anxiety and mental issues keeps me up for days." The patient stated that she took a bunch of pills. The patient denies that this was a suicide attempt, however, the patient stated that "I know it is harmful if I take that many pills." Patient also reported having audio hallucinations which she describes as "impulsive thoughts" and they say "let the bodies drop on the ground." She denies that it was a command hallucination but describes it like a song. The patient also reports having visual hallucinations. The patient also reports that all her belongings are in her car and it was impounded somewhere. She plans to stay at the mission after D/C and resume connection with [facility]. Assessment What has happened this shift: Client was awake and ambualting on unit to begin this shift. Compliant with assessment and medications this am. Client has been visible on unit wearing appropriate personal attire. She has had no behavioral issues as of this writing (0940 hours). She is interested in talking to her care provider as she wants to let them know, " only certain meds work on me". Client appears guarded and suspicious but is amicable to treatment here. Client has been visible this afternoon on the unit. She still appears guarded but is more engaging with functional tester typewriters than earlier this shift. Client remains guarded and suspicious but approachable. S/I, H/I: Denies A/VH: Denies Sleep: 5.75 ADL's: Requires prompting Group attendance: not today Were Meds taken: Any med S/E: Mental Status Exam Appearance: Neat Eye contact: Direct Behavior: Visible on unit, but keeps to herself. Speech: Mood: Affect: Thought process: Thought Content: Cognition: A/Ox3 Insight: fair Judgment: fair Interventions PRN's used: none. Therapeutic interventions: provided therapeutic communication and active listening, assessed mood and behaviors, provided medication administration/education/monitoring as needed; Q15 safety checks. Restraints/seclusion/emergency medication: N/A Justification of Continued Inpatient Treatment: Continued therapeutic support and medication management needed to provide stabilization, prevent decompensation, improve coping mechanisms decreasing risk to patient and re-admittance.
[2019-08-28 20:00] VITALS: BP 107/58
[2019-08-28] MEDS: QUEtiapine 25mg tablet PO SCH (20:32)
[2019-08-28] MEDS: olanzapine 10mg tablet PO SCH (20:33)
--- NOTE | 2019-08-29 01:45 | NUR ---
Nursing Progress Note: Legal hold: 5150 DTS Client on involuntary status for DTS Report received from EUGENIA Barbosa with use of SBAR Why are they here: The patient states that she drove from [place] to [place] in one night, and after she arrived in [place] she was trying to sleep in her car, however the patient stated that "anxiety and mental issues keeps me up for days." The patient stated that she took a bunch of pills. The patient denies that this was a suicide attempt, however, the patient stated that "I know it is harmful if I take that many pills." Patient also reported having audio hallucinations which she describes as "impulsive thoughts" and they say "let the bodies drop on the ground." She denies that it was a command hallucination but describes it like a song. The patient also reports having visual hallucinations. The patient also reports that all her belongings are in her car and it was impounded somewhere. She plans to stay at the mission after D/C and resume connection with [facility]. Assessment What has happened this shift: Patient was in bed. When this technical document writer entered her room she was sleeping but woke up easily. When asked if she would let this technical document writer do a 1:1 assessment, she replied, "I'm so tired, please just let me sleep." The patient has been off her meds, and they were restarted today. She is probably feeling the sedating effects of these meds. The patient remained asleep until this technical document writer entered her room with her HS meds. She easily woke and sat up onto the side of her bed while they were prepared. The patient took medication without encouragement. She smiled and thanked this technical document writer for helping her. She then got back in bed and turned over to sleep. S/I, H/I: Denies. "I'm not suicidal...I didn't try to kill myself." A/VH: Denies Sleep: See sleep hour assessment ADL's: Requires prompting, but is independent. Group attendance: No groups at night. Were Meds taken: Yes Any med S/E: None reported or observed. Mental Status Exam Appearance: This young lady laying in bed wearing appropriate attire. She has cut her hair short. Eye contact: Direct Behavior: Patient is appropriate when awake. Has slept all shift. Speech: Clear, normal rate/volume. Mood: Depressed aeb sleeping all shift. Affect: Flat with occasional brightening. Thought process: Linear, goal oriented. Thought Content: Discharge. Cognition: A/Ox3 Insight: fair Judgment: fair Interventions PRN's used: Ativan with good relief aeb the patient has been sleeping. Therapeutic interventions: provided therapeutic communication and active listening, assessed mood and behaviors, provided medication administration/education/monitoring as needed; Q15 safety checks. Restraints/seclusion/emergency medication: N/A Justification of Continued Inpatient Treatment: Continued therapeutic support and medication management needed to provide stabilization, prevent decompensation, improve coping mechanisms decreasing risk to patient and re-admittance.
[2019-08-29 08:00] VITALS: BP 115/64
[2019-08-29] MEDS: QUEtiapine 25mg tablet PO SCH ×2 (08:07→20:27)
[2019-08-29] MEDS: benztropine 1mg tablet PO SCH ×2 (08:07→20:27)
[2019-08-29] MEDS: gabapentin 300mg capsule PO SCH ×3 (08:07→20:27)
--- NOTE | 2019-08-29 14:07 | NUR ---
DISCHARGE PLANNING Ct reported she would like to discharge today. She reported she can stay at the [facility]. She is quite concerned about her car and reported she has $1000 in it. She was concerned about not being able to fill her medications. She reported she wants to return to [place] and can follow up with [facility] there. Completed Pharmaceutical assistance/indigent med request and faxed to the pharmacy. Encouraged Ct to call her parents to let them know where she is and that she plans on returning to [place]. She stated she did not want to call them. JEANNIE Andrade
[2019-08-29] MEDS ORDERED: BENZ1TAB7 PO (15:13)
[2019-08-29] MEDS ORDERED: GABA300C PO (15:13)
[2019-08-29] MEDS ORDERED: QUET25TA34 PO (15:13)
[2019-08-29] MEDS ORDERED: OLAN10TA19 PO (15:13)
--- NOTE | 2019-08-29 18:11 | NUR ---
Nursing Progress Note: Clare Legal hold: 5150 DTS Report received from Telma RN with use of SBAR The patient states that she drove from [place] to [place] in one night, and after she arrived in [place] she was trying to sleep in her car, however the patient stated that "anxiety and mental issues keeps me up for days." The patient stated that she took a bunch of pills. The patient denies that this was a suicide attempt, however, the patient stated that "I know it is harmful if I take that many pills." Patient also reported having audio hallucinations which she describes as "impulsive thoughts" and they say "let the bodies drop on the ground." She denies that it was a command hallucination but describes it like a song. The patient also reports having visual hallucinations. The patient also reports that all her belongings are in her car and it was impounded somewhere. She plans to stay at the mission after D/C and resume connection with [facility]. Assessment What has happened this shift: Received Pt in bed resting w/o distress at beginning of shift. Pt is A&O X4 cooperative but guarded. Pt up and ate all meals today around other Pts, but did not interact much with others. She took Meds as ordered throughout day with a few Qs. Wanted to leave today and frequently asked this RN to talk with the DR. She denies that taking all her meds was a suicide attempt and she just wanted to know how it would make her feel. She wants to get her car and return to [place]. After hearing from Khoi MCKEON that she was not leaving today, but possibly tomorrow, she calmed and was less pressured, although still keeping to herself in a guarded way. Has made multiple phone calls during day. Overall less guarded and suspicious than in AM. S/I, H/I: Denies A/VH: Denies Sleep: Not on this shift ADL's: Good, by self Group attendance: In AM Were Meds taken: Yes Any med S/E: None noted Mental Status Exam Appearance: Neat Eye contact: Direct Behavior: Visible on unit, but keeps to herself. Speech: Clear and coherent Mood: Mildly anxious Affect: Guarded Thought process: Linear Thought Content: Wanting to leave Cognition: A/Ox$ Insight: fair Judgment: fair Interventions PRN's used: none. Therapeutic interventions: provided therapeutic communication and active listening, assessed mood and behaviors, provided medication administration/education/monitoring as needed; Q15 safety checks. Restraints/seclusion/emergency medication: N/A Justification of Continued Inpatient Treatment: Continued therapeutic support and medication management needed to provide stabilization, prevent decompensation, improve coping mechanisms decreasing risk to patient and re-admittance.
[2019-08-29 20:00] VITALS: BP 93/60
[2019-08-29] MEDS: olanzapine 10mg tablet PO SCH (20:28)
--- NOTE | 2019-08-30 00:17 | NUR ---
Nursing Progress Note: Legal hold: 5150 Client on involuntary status for DTS Report received from nurse with use of SBAR: Sharifa RN Why are they here: Pt. transferred to [facility] from ICU after being found unresponsive in her car at a local confucianist r/t a possible overdose attempt taking Gabapentin, Seroquel, and Zyprexa. She had to be intubated due to encephalopathy, acute respiratory failure, and hypernatremia. Upon admission to [facility], the patient reported that she drove from [place] to [place] in one night, and after she arrived in [place] she was trying to sleep in her car. However, she stated, "The anxiety and mental issues keep me up for days." Pt. denies any suicide attempt, but reports that "I know it is harmful if I take that many pills." She also reported having audio hallucinations which she describes as "impulsive thoughts," and they say "let the bodies drop on the ground." She denies command hallucinations. The patient also reports having visual hallucinations. She states that all her belongings are in her can and it was impounded somewhere. [facility] the [facility] after D/C and resume connection with [facility]. Assessment What has happened this shift: Pt. in bed sleeping at the beginning of the shift, and continued to isolate here throughout the shift. She is compliant with V/S and physical assessment, however refuses to attend HS snack. This contract writer awoke pt. to administer HS medications, she presents as fatigued, guarded, and withdrawn. Pt. is A&O upon assessment, however when questioned by this contract writer regarding why she is here states, "I'm working on my memory." Speech is soft and inaudible at times, and it appears that pt. may be struggling to stay awake. When asked by this contract writer to repeat answers to questions, pt. becomes slightly irritable but complies. She is cooperative with all HS medications and then returns directly to sleep. Pt. denies S/I, does not appear to be internally preoccupied, and no delusional statements made. She appears to be resting comfortably, will continue to monitor. S/I, H/I: Denies A/VH: Denies, does not appear to be internally preoccupied Sleep: Appears fatigued and remains in bed throughout the shift ADL's: Requires some prompting from staff. Group attendance: Pt. does not attend HS snack Were meds taken: Yes Any med S/E: None Mental Status Exam Appearance: Neat and appropriately dressed in hospital attire. Head is shaved. Eye contact: Poor Behavior: Cooperative, fatigued, guarded, and withdrawn Speech: Speech is soft and inaudible at times, and it appears that pt. may be struggling to stay awake. When asked by this contract writer to repeat answers to questions, pt. becomes slightly irritable but complies. Mood: Guarded Affect: Flat Thought process: Poverty of thought Thought Content: Preoccupation with desire to discharge Cognition: A&O X3 (not to reason here) Insight: Poor Judgment: Poor Interventions PRN's used: None Therapeutic interventions: Introduced self and attempted to establish rapport, maintained a safe and supportive environment, ensured contract for safety, provided clear and simple instructions, and ensured Q 15min safety checks. Restraints/seclusion/emergency medication: N/A Justification of Continued Inpatient Treatment: Pt. continues to require a safe and supportive environment, per LINDA Colby, she may discharge tomorrow if continues to do well.
[2019-08-30] MEDS: benztropine 1mg tablet PO SCH (08:03)
[2019-08-30] MEDS: QUEtiapine 25mg tablet PO SCH (08:03)
[2019-08-30] MEDS: gabapentin 300mg capsule PO SCH ×2 (08:03→13:06)
[2019-08-30 08:10] VITALS: BP 118/67
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
--- NOTE | 2019-08-30 14:24 | NUR ---
DISCHARGE NOTE: Pt discharged at 1330. Ambulated off the unit accompanied by PCT. Pt sent with a 5 day supply of medications. Pt expressed understanding of discharge instructions and follow up care, all belongings returned.
== END 2019-08-30 13:30 | disposition home or self-care (01) | DRG 885 ==
LOC: ADULT MH 20:22
PROVIDERS: ADMIT Psychiatry & Neurology Psychiatry; ATTEND Psychiatry & Neurology Psychiatry
DX: F25.0 Schizoaffective disorder, bipolar type (principal); F41.9 Anxiety disorder, unspecified; F12.90 Cannabis use, unspecified, uncomplicated; Z86.32 Personal history of gestational diabetes; Z81.8 Family history of other mental and behavioral disorders; Z79.899 Other long term (current) drug therapy
CPT/HCPCS: 36415; 80061; 87081